=== PATIENT | female | born 1960 | race Caucasian/White ===

== ENCOUNTER 2022-08-11 08:30 | Day surgery (SDC) | payer BC, OTHER ==
[2022-08-09 11:43] VITALS: BMI 34.9
[2022-08-11 09:15] VITALS: RESP 18
[2022-08-11] MEDS ORDERED: MIDAZOLAM HCL 2 MG/2 ML SINGLE DOSE VIAL ONE ×2 (10:36→10:49)
[2022-08-11] MEDS ORDERED: PROPOFOL 40 ML ONE ×2 (10:41→11:31)
[2022-08-11 11:42] VITALS: TEMP 98
[2022-08-11 11:47] VITALS: BP 108/61; PULSE 54
== END 2022-08-11 12:00 | disposition home or self-care (01) ==
LOC: FASU 08:30
PROVIDERS: ATTEND Orthopaedic Surgery Hand Surgery
PROC: 01N50ZZ Release Median Nerve, Open Approach (ICD-10-PCS; principal; 2022-08-11 10:52)
DX: G56.02 Carpal tunnel syndrome, left upper limb (principal)